=== PATIENT | female | born 1995 | race Caucasian/White ===

== ENCOUNTER 2024-02-12 18:53 | Emergency (ER) | payer MEDICAID, SELFPAY ==
[2024-02-12 18:54] VITALS: BP 99/50; PULSE 99; RESP 15; TEMP 36.2; O2SAT 96; BMI 30.9
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
[2024-02-12] MEDS: Ibuprofen 200 MG Tablet 400 MG PO (19:17)
--- NOTE | 2024-02-12 19:24 | RAD_ITS ---
EXAM: XR RIGHT WRIST COMPLETE, 3 OR MORE VIEWS CLINICAL INDICATION: pain TECHNIQUE: Frontal, lateral and oblique views of the right wrist. COMPARISON: No relevant prior studies available. FINDINGS: BONES/JOINTS: Unremarkable. No acute fracture. No subluxation. Normal alignment. Preservation of the joint space. No sclerotic or destructive changes observed. SOFT TISSUES: Unremarkable. No soft tissue swelling or gas. No radiopaque foreign body. RAD/Wrist min 3 Views IMPRESSION: Negative right wrist x-rays. Electronically Signed: Hakeem Allan MD at 19:46 EDT ,
--- NOTE | 2024-02-12 19:24 | RAD_ITS ---
EXAM: XR RIGHT TIBIA AND FIBULA, 2 VIEWS CLINICAL INDICATION: pain TECHNIQUE: Frontal and lateral views of the right tibia and fibula. COMPARISON: No relevant prior studies available. FINDINGS: BONES/JOINTS: Unremarkable. No acute fracture. No subluxation. Normal alignment. Preservation of the joint space. No sclerotic or destructive changes observed. SOFT TISSUES: Unremarkable. No soft tissue swelling or gas. No radiopaque foreign body. RAD/Tibia & Fibula 2 Views IMPRESSION: Negative right tibia and fibula x-rays. Electronically Signed: Hakeem Allan MD at 19:56 EDT Reading Location ID and State: [facility] / [place] , Service support ,
--- NOTE | 2024-02-12 19:24 | RAD_ITS ---
EXAM: XR RIGHT KNEE COMPLETE, 4 OR MORE VIEWS CLINICAL INDICATION: pain TECHNIQUE: Four or more views of the right knee. COMPARISON: No relevant prior studies available. FINDINGS: BONES/JOINTS: Unremarkable. No acute fracture. No subluxation. Normal alignment. Preservation of the joint space. No sclerotic or destructive changes observed. SOFT TISSUES: Unremarkable. No soft tissue swelling or gas. No radiopaque foreign body. RAD/Knee 4 or More Views IMPRESSION: Negative right knee x-rays. Electronically Signed: Hakeem Allan MD at 19:57 EDT ,
--- NOTE | 2024-02-12 19:24 | RAD_ITS ---
EXAM: XR LEFT KNEE COMPLETE, 4 OR MORE VIEWS CLINICAL INDICATION: pain TECHNIQUE: Four or more views of the left knee. COMPARISON: No relevant prior studies available. FINDINGS: BONES/JOINTS: Unremarkable. No acute fracture. No subluxation. Normal alignment. Preservation of the joint space. No sclerotic or destructive changes observed. SOFT TISSUES: Unremarkable. No soft tissue swelling or gas. No radiopaque foreign body. RAD/Knee 4 or More Views IMPRESSION: Negative left knee x-rays. Electronically Signed: Hakeem Allan MD at 19:57 EDT ,
[2024-02-12 20:52] VITALS: BP 105/57; PULSE 77; RESP 20; TEMP 36.7; O2SAT 97
== END 2024-02-12 20:55 | disposition home or self-care (01) ==
PROVIDERS: Emergency Provider Student in an Organized Health Care Education/Training Program; Visit Provider Student in an Organized Health Care Education/Training Program
DX: S80.01XA Contusion of right knee, initial encounter (principal); S80.02XA Contusion of left knee, initial encounter; S63.91XA Sprain of unspecified part of right wrist and hand, initial encounter; F17.210 Nicotine dependence, cigarettes, uncomplicated; V43.62XA Car passenger injured in collision with other type car in traffic accident, initial encounter; Y92.410 Unspecified street and highway as the place of occurrence of the external cause
CPT/HCPCS: 73110; 73564; 73590; 99283